=== PATIENT | male | born 1960 | race Two or more races ===

== ENCOUNTER 2019-01-22 10:49 | Outpatient (CLI) | payer OTHER | END 2019-01-22 11:30 | disposition home or self-care (01) | LOC: RAD 10:49 | DX: E66.01 Morbid (severe) obesity due to excess calories (principal); R06.02 Shortness of breath; I10 Essential (primary) hypertension; R05 Cough ==

== ENCOUNTER 2019-02-05 10:39 | Outpatient (CLI) | payer OTHER | END 2019-02-05 13:56 | disposition home or self-care (01) | LOC: SONOGRAMA 10:39 | DX: N18.1 Chronic kidney disease, stage 1 (principal); I12.9 Hypertensive chronic kidney disease with stage 1 through stage 4 chronic kidney disease, or unspecified chronic kidney disease ==

== ENCOUNTER 2023-02-28 07:06 | Outpatient (CLI) | payer OTHER | END 2023-02-28 07:08 | disposition home or self-care (01) | LOC: NUCLEAR 07:06 | PROVIDERS: ATTEND Internal Medicine Rheumatology | DX: M06.9 Rheumatoid arthritis, unspecified (principal); M46.1 Sacroiliitis, not elsewhere classified | CPT/HCPCS: 78315; A9503 ==